=== PATIENT | female | born 1945 | race Caucasian/White ===

== ENCOUNTER 2016-06-23 09:11 | Emergency (ER) | payer BC, OTHER ==
[~2016-06-23] VITALS: Ht 160 cm; Wt 79.7 kg
[2016-06-23 09:14] VITALS: BP 135/69; PULSE 58; RESP 16; TEMP 98.2; O2SAT 94
[2016-06-23] MEDS ORDERED: HYDR-3133 PO (09:38)
[2016-06-23] MEDS ORDERED: WEST0.2O TOPICAL (09:38)
--- NOTE | 2016-06-23 09:39 | PD ---
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 She used some of the cream that she has for her tongue and was putting in her face and she also used Vaseline and topical hydrocortisone cream. She denies any new makeup, sunscreen, detergent or other medications. PFSH Past Medical History Diminished Hearing: No Medical other: Yes ("DIZZINESS" ) ?: Not Past Surgical History Other Surgery: Yes (LEFT BREAST LUMPECTOMY ) Social History Alcohol Use: Yes Tobacco Use: No Substance Use: No Allergies-Medications (Allergen,Severity, Reaction): Coded Allergies: No Known Allergies (Unverified , 06/23/16) Review of Systems General / Constitutional: No: Fever, Chills Respiratory: No: Shortness of Breath Physical Exam Narrative GENERAL: Well-appearing, no acute distress, nontoxic SKIN: Erythematous thickened skin along the nasal folds, excoriated on the right. HEAD: Atraumatic. Normocephalic. ENT: No nasal bleeding or discharge. Moist mucous membranes MUSCULOSKELETAL: No obvious deformities. No clubbing. No cyanosis. No edema. NEUROLOGICAL: Awake and alert. No obvious cranial nerve deficits. Motor grossly within normal limits. Normal speech. PSYCHIATRIC: Appropriate mood and affect; insight and judgment normal. Data Data Last Documented VS Vital Signs Date Time Temp Pulse Resp B/P Pulse Ox O2 Delivery O2 Flow Rate FiO2 06/23/16 09:14 98.2 58 16 135/69 94 MDM Medical Decision Making Medical Screen Exam Complete: Yes Emergency Medical Condition: Yes Differential Diagnosis Contact dermatitis, lichen planus, allergic reaction, lupus Narrative Course This is a 71 year since to the emergency department with a rash along her nasal folds which has been present for 3 days. She denies any new exposures. She has a history of lichen planus in her mouth. I advised her to use a low potency hydrocortisone cream twice a day on her face and I prescribed her Atarax. I told her to follow up with her butt sawyer if she is not improving. Diagnosis Primary Impression: Rash Patient Instructions: General Instructions Med/Other Pt SpecificInfo: Prescription(s) given Scripts Hydroxyzine HCl 25 Mg Tab25 Mg PO QID PRN (ITCHING) #14 TAB Ref 0 Prov:Juana Block MD 06/23/16 Hydrocortisone Valerate Topical (Westcort Topical)0.2% Oint1 Applic TOPICAL BID #15 GM Ref 0 Prov:Juana Block MD 06/23/16 Disposition: 01 DISCHARGE HOME Condition: Stable Juana Block MD Jun 23, 2016 09:38
== END 2016-06-23 09:47 | disposition home or self-care (01) ==
LOC: PHED 09:11
DX: R21 Rash and other nonspecific skin eruption (principal); L29.9 Pruritus, unspecified; Z87.2 Personal history of diseases of the skin and subcutaneous tissue
CPT/HCPCS: 99282

== ENCOUNTER 2016-12-03 07:59 | Emergency (ER) | payer OTHER ==
[~2016-12-03] VITALS: Ht 162.6 cm; Wt 80.3 kg
[~2016-12-03 07:59] MED LIST: HYDR-3133 PO; WEST0.2O TOPICAL
[2016-12-03 08:08] VITALS: BP 145/74; PULSE 58; RESP 18; TEMP 98.1; O2SAT 95
[2016-12-09] MEDS ORDERED: CLON0.5T PO (15:17)
[2016-12-09] MEDS ORDERED: NORC5TAB PO (15:17)
[2016-12-10] MEDS ORDERED: NORC5TAB PO (14:47)
== END 2016-12-03 09:40 | disposition left against medical advice (07) ==
LOC: PHED 07:59
DX: Z53.9 Procedure and treatment not carried out, unspecified reason (principal)
CPT/HCPCS: 99281

== ENCOUNTER → 2016-12-10 | Day surgery (SDC) | payer OTHER ==
[~2016-12-10] VITALS: Ht 162.6 cm; Wt 80.6 kg
[~2016-12-10] MED LIST changes: +*morphine SULFATE 8 MG/ML PERIprocedure ONLY ONE; +ACETAMINOPHEN 1000 MG/100 ML 100 ML IV ONE; +ACETAMINOPHEN/HYDROcodone 325 MG/5 MG TAB PO PRN; +BUPIVACAINE HCL PF 0.5% 30 ML VIAL ONE; +CHLORHEXIDINE GLUCONATE 2 % 1 PACK (2 CLOTHS) TOPICAL PRN; +CLON0.5T PO; +DEXAMETHASONE SOD PHOS 4 MG/ML VIAL IV ONE; +DO NOT ADM ANY ANTICOAGULANT DRUGS PRN; +GENTAMICIN SULFATE 80 MG/2 ML VIAL ONE; -HYDR-3133 PO; +HYDROmorphone HCL PF 2 MG/ML VIAL ONE; +INSULIN HUMAN REGULAR 1,000 UNITS/10 ML VIAL SQ PRN; +KETOROLAC TROMETHAMINE 60 MG/2 ML (IM) VIAL IM ONE; +LACTATED RINGER'S 1000 ML IV PRN; +METOPROLOL TARTRATE 25 MG TAB PO PRN; +MIDAZOLAM HCL 2 MG/2 ML VIAL ONE; +MORPHINE SULFATE 4 MG/ML INJ IV PUSH PRN; +NORC5TAB PO; +ONDANSETRON HCL 4 MG/2 ML VIAL IV PRN; +ONDANSETRON HCL 4 MG/2 ML VIAL IV PUSH ONE; +PROPOFOL 200 MG/20 ML AMP IV ONE; +SODIUM CHLORID 0.9% 500 ML IV PRN; +SODIUM CHLORIDE 0.9% FLUSH 10 ML FLUSH IV FLUSH PRN; +SODIUM CHLORIDE 0.9% FLUSH 10 ML FLUSH IV FLUSH SCH; +VANCOMYCIN 1000 MG/NS 250 ML (for <70 kg) IV SCH; -WEST0.2O TOPICAL; +ceFAZolin 2 GM PREMIX 50 ML IV SCH; +ePHEDrine/NS 25 MG/5 ML SYR IV ONE
[2016-12-10] MEDS: POVIDONE IODINE 7.5% SCRUB 118 ML BOTTLE TOPICAL SCH ×2 (12:19→12:35)
[2016-12-10] MEDS: CHLORHEXIDINE GLUCONATE 4% SOLN 120 ML BTL TOPICAL SCH ×2 (12:20→12:36)
[2016-12-10] MEDS: POVIDONE IODINE 5% (ANTISEPSIS KIT) 4 APPLICATIONS EACH NARE PRN ×2 (12:20→12:36)
--- NOTE | 2016-12-10 14:44 | PD.OP ---
cc: Waldo Alvarez MD Operative Report Date of Surgery: Dec 10, 2016 Preoperative Diagnosis: Right distal radius intra-articular three-part fracture Postoperative Diagnosis: Same Procedure: Right distal radius fracture 3 part intra-articular open reduction internal fixation Anesthesia: Gen. Surgeon: Waldo Alvarez Anode Rebuilder(s): RAMONA Scott The surgical procedure was assisted by my Advanced Registered Nurse Practitioner. My PEST CONTROL WORKER presence was necessary throughout this case for the manipulation and positioning of the surgical extremity. My PEST CONTROL WORKER was assisting me throughout the duration of this procedure. The skill set of an Advance Registered Nurse Practitioner was medically necessary to complete this procedure. During the surgical case, the rn surgical pcu was working at the back table and the Advance Registered Nurse Practitioner was directly assisting me. Operation and Findings: Tourniquet time: 14 minutes at 250 mmHg of pressure Estimated blood loss: Minimal cc The patient received intravenous vancomycin and Ancef. After the appropriate anesthesia was administered, the patient's arm was prepped and draped in the usual sterile fashion. Local anesthetic was given, and the arm was exsanguinated. The tourniquet was raised to 250 mmHg of pressure. We made a standard incision over the volar aspect of the forearm. We then dissected through the flexor carpi radialis sub- sheath. The pronator quadratus was reflected. We now visualized the distal radius fracture very well. The fracture was anatomically reduced both visually and via fluoroscopy. We provisionally held the fracture reduced and then applied a Synthes precontoured distal radius plate into the appropriate position. The plate was secured to the distal radius first with the sliding screw hole. This was then followed by locking screws distally and proximally. We took final fluoroscopic imaging of the wrist. We found no intra-articular penetration of the screws. The patient had full range of motion of the wrist with no crepitus. The tourniquet was released and hemostasis was achieved. The patient had a 2+ radial pulse. We irrigated the incision thoroughly. We then closed skin with 2 -0 Vicryl followed by 3-0 nylon. The arm was dressed and a volar splint was applied. The postoperative plan is to start early range of motion of the wrist. Waldo Alvarez MD Dec 10, 2016 14:44
--- NOTE | 2016-12-10 15:28 | RADRPT ---
EXAM DATE/TIME: 12/10/2016 14:37 [facility] COMPARISON: FLUOROSCOPY PORTABLE UP TO 1HR, December 10, 2016, 0:00. INDICATIONS : Right wrist fracture, ORIF done in operating room. MEDICAL HISTORY : None. SURGICAL HISTORY : None. ENCOUNTER: Initial ACUITY: 1 day PAIN SCORE: Non-responsive. LOCATION: Right Wrist. FINDINGS: There has been plating of the patient's distal radial fracture. The alignment is excellent. Note is made of a small fracture off the tip of the ulnar styloid as well. Two view examination of the right wrist demonstrates no soft tissue swelling, dislocation, or fractur e. The joint spaces are maintained. Bony mineralization is normal. CONCLUSION: 1. Excellent alignment of the radial fracture post plating. Jake Vilchis MD on December 10, 2016 at 15:27 Board Certified Radiologist. This report was verified electronically.
[2016-12-10 16:45] VITALS: BP 134/53; PULSE 96; RESP 18; TEMP 98.4; O2SAT 62
--- NOTE | 2016-12-11 21:04 | EKG ---
Date Performed: 12/10/2016 Time Performed: 11:59:57 PTAGE: 71 years EKG: SINUS BRADYCARDIA NONSPECIFIC T-WAVE ABNORMALITY BORDERLINE ECG NO PREVIOUS TRACING DOCTOR: Jonathan Best Interpretating Date/Time 12/11/2016 20:54:31
== END | disposition home or self-care (01) ==
LOC: HSDC 11:23
PROVIDERS: ATTEND Orthopaedic Surgery
DX: S52.571A Other intraarticular fracture of lower end of right radius, initial encounter for closed fracture (principal); W10.9XXA Fall (on) (from) unspecified stairs and steps, initial encounter; Y93.01 Activity, walking, marching and hiking; R00.1 Bradycardia, unspecified
CPT/HCPCS: 01830; 25609; 73100; 76000; 93005; C1713; J0131; J0690; J1100; J1580; J1885; J2250; J2270; J2405; J3010; J3370; J7050; J7120; J1170